=== PATIENT | male | born 1960 | race Caucasian/White ===

== ENCOUNTER → 2021-08-23 | Outpatient (CLI) | payer OTHER ==
--- NOTE | 2021-08-24 08:31 | REPVR ---
PROCEDURE INFORMATION: Exam: MR Lumbar Spine Without Contrast Exam date and time: 08/23/2021 8:16 AM Age: 60 years old Clinical indication: Low back pain; Additional info: Lbp TECHNIQUE: Imaging protocol: Multiplanar magnetic resonance images of the lumbar spine without intravenous contrast. COMPARISON: No relevant prior studies available. FINDINGS: Vertebrae: Moderate dextroscoliosis with right lateral subluxation of L3 on L4 and L4 on L5. Degenerative retrolisthesis of L4 on L5. Grade 1 spondylolisthesis of L5 over S1. Otherwise,The lumbar vertebral bodies are normal in height,signal intensity and alignment.No acute fracture or dislocation is seen. Spinal epidural space: There is no evidence of epidural masses or hemorrhage. Spinal cord: The conus medullaris is normal. The cauda equina nerve roots demonstrate no crowding or displacement. T12-L1: Moderate right foraminal protrusion causing moderate right foraminal stenosis. L1-L2: There is no significant degenerative disc herniation.The spinal canal and neural foramina are patent and without significant stenosis. L2-L3: Moderately reduced in height and T2 signal indicating degeneration. Mild degenerative endplate changes. Small diffuse posterior herniation. Moderate facet arthropathy.There is no evidence of spinal canal narrowing. There is moderate bilateral foraminal stenosis. L3-L4: Markedly reduced in height and T2 signal indicating degeneration. Moderate degenerative endplate changes.There is a mild diffuse posterior bulge causing mild effacement of the thecal sac. Moderate left foraminal protrusion. Mild facet arthropathy.There is no evidence of spinal canal narrowing. There is mild right foraminal stenosis. There is severe left foraminal stenosis. There is compression on the left exiting nerve root. L4-L5: Markedly reduced in height and T2 signal indicating degeneration. Moderate degenerative endplate changes. Small diffuse posterior herniation. Moderate facet arthropathy.There is thickening of the ligamentum flavum.There is no evidence of spinal canal narrowing. There is moderate left foraminal stenosis. There is severe right foraminal stenosis. There is compression on the exiting nerve root. L5-S1: Markedly reduced in height and T2 signal indicating degeneration. Moderate degenerative endplate changes. Small diffuse posterior herniation. Severe facet arthropathy.There is no evidence of spinal canal narrowing. There is severe bilateral foraminal stenosis. There is compression on the bilateral exiting nerve root. Soft tissues: The prevertebral soft tissues appear normal. IMPRESSION: 1. MRI of the lumbar spine reveals multilevel degenerative spondylitic changes and degenerative disc disease as described above. 2. Moderate dextroscoliosis with right lateral subluxation of L3 on L4 and L4 on L5. Degenerative retrolisthesis of L4 on L5. Grade 1 spondylolisthesis of L5 over S1. Otherwise,The lumbar vertebral bodies are normal in height,signal intensity and alignment.No acute fracture or dislocation is seen. Electronically signed by: Daryn Reese On 08/24/2021 08:30:56 AM
== END ==
LOC: M RAD 07:07
PROVIDERS: ATTEND Family Medicine
DX: M54.50 Low back pain, unspecified (principal); M48.05 Spinal stenosis, thoracolumbar region; M51.36 Other intervertebral disc degeneration, lumbar region; M48.061 Spinal stenosis, lumbar region without neurogenic claudication; M43.16 Spondylolisthesis, lumbar region

== ENCOUNTER 2022-02-24 10:54 | Emergency (ER) | payer OTHER ==
[~2022-02-24] VITALS: Ht 188 cm; Wt 100.0 kg
[2022-02-24] MEDS ORDERED: NS 1,000 ML IV ONE (11:20)
[2022-02-24 11:34] LABS: BASO % 0.4 % (0.0-1.0); EOS # 0.1 10^3/uL (0.0-0.5); EOS % 0.7 % (0.0-3.0); HEMATOCRIT 44.9 % (42.0-52.0); HEMOGLOBIN 15.7 g/dl (13.5-17.5); LYMPH # 1.4 10^3/uL (1.5-5.0); MEAN CORPUSCULAR VOLUME 94.3 fl (80.0-96.0); MONO # 0.7 10^3/uL (0.0-0.8); MONO % 7.9 % (2.0-8.0); NEUTROPHILS # 6.7 10^3/uL (1.5-8.5); NEUTROPHILS % 74.8 % (36.0-66.0); PLATELET COUNT, AUTOMATED 237 10^3/uL (150-450); RED BLOOD COUNT 4.76 10^6/uL (4.30-6.10); WHITE BLOOD COUNT 8.9 10^3/uL (4.0-10.0)
[2022-02-24 11:48] LABS: INR 0.92; PROTHROMBIN TIME 12.8 SECONDS (12.7-14.5)
[2022-02-24 11:49] LABS: PARTIAL THROMBOPLASTIN TIME 29.9 SECONDS (25.9-37.0)
[2022-02-24 12:03] LABS: CK-MB VALUE MASS 4.3 NG/ML (<3.6); MB/CK RELATIVE INDEX 1.03 (< OR =4)
[2022-02-24 12:10] LABS: BLOOD UREA NITROGEN 14 MG/DL (7-18); CALCIUM LEVEL 9.8 MG/DL (8.5-10.1); CARBON DIOXIDE LEVEL 25 MEQ/L (21-32); CHLORIDE LEVEL 105 MEQ/L (98-107); CREATININE FOR GFR 1.09 MG/DL (0.70-1.30); GLOMERULAR FILTRATION RATE > 60.0 (>56); GLUCOSE, FASTING 153 MG/DL (70-100); POTASSIUM SERUM 3.9 MEQ/L (3.5-5.1); SODIUM LEVEL 138 MEQ/L (136-145)
[2022-02-24 12:11] LABS: ALBUMIN 4.1 GM/DL (3.2-5.2); ALT/SGPT 45 U/L (12-78); BILIRUBIN,DIRECT 0.2 MG/DL (0.0-0.2); BILIRUBIN,TOTAL 0.7 MG/DL (0.2-1.0); LIPASE 138 U/L (73-393); MAGNESIUM LEVEL 2.1 MG/DL (1.8-2.4); NT-PRO BNP 81 PG/ML (<125); TOTAL PROTEIN 6.8 GM/DL (6.4-8.2)
[2022-02-24] MEDS ORDERED: LISI30TA4 PO (12:21)
[2022-02-24] MEDS ORDERED: HYDR12.55 PO (12:22)
[2022-02-24] MEDS ORDERED: atenoloL 25 MG TAB PO ONE (12:35)
[2022-02-24 12:51] VITALS: BP 151/89
[2022-02-24 12:54] LABS: CK-MB VALUE MASS 4.4 NG/ML (<3.6); MB/CK RELATIVE INDEX 1.09 (< OR =4)
[2022-02-24 14:50] LABS: CK-MB VALUE MASS 4.5 NG/ML (<3.6); MB/CK RELATIVE INDEX 1.17 (< OR =4)
[2022-02-24] MEDS ORDERED: ASPIRIN 81 MG CHEW TABLET PO ONE (15:20)
[2022-02-24] MEDS ORDERED: HEPARIN SOD (PORCINE) 5000UNITS/ML 1ML VIAL/SYRINGE IV ONE (16:05)
[2022-02-24] MEDS ORDERED: HEPARIN DRIP 25,000 UNITS in IV 1 EA IV SCH (16:05)
[2022-02-24 17:20] LABS: RSV AMPLIFICATION NEGATIVE (NEGATIVE)
[2022-02-24 20:30] VITALS: BP 137/83
== END 2022-02-24 20:43 | disposition short-term general hospital (02) ==
LOC: M ED 10:54
DX: I47.1 Supraventricular tachycardia (principal); I21.4 Non-ST elevation (NSTEMI) myocardial infarction; R94.31 Abnormal electrocardiogram [ECG] [EKG]; I10 Essential (primary) hypertension; Z79.899 Other long term (current) drug therapy
CPT/HCPCS: 71045; 80048; 80076; 82550; 82553; 83690; 83735; 83880; 84443; 84484; 85025; 85610; 85730; 87631; 93005; 93041; 94760; 96361; 96365; 96366; 99291; J1644

== ENCOUNTER → 2023-06-02 | Outpatient (CLI) | payer OTHER ==
[~2023-06-02] MED LIST: HYDR12.55 PO; LISI30TA4 PO
== END ==
LOC: M PLAIMG 08:19
PROVIDERS: ATTEND Orthopaedic Surgery
DX: M25.511 Pain in right shoulder (principal)

== ENCOUNTER → 2023-09-08 | Day surgery (SDC) | payer OTHER ==
[~2023-09-08] VITALS: Ht 188 cm; Wt 103.9 kg
[~2023-09-08] MED LIST changes: +AMLO1TAB25 PO; +METO25TA4 PO; +NS 1,000 ML IV ONE; +propofoL 200 MG/20 ML VIAL As Ordered ONE
[2023-09-08 09:09] VITALS: TEMP 97.6
[2023-09-08 09:30] VITALS: BP 149/75; O2SAT 97
== END | disposition home or self-care (01) ==
LOC: M OPP 07:24
PROVIDERS: ATTEND Internal Medicine Gastroenterology
DX: Z12.11 Encounter for screening for malignant neoplasm of colon (principal); Z80.0 Family history of malignant neoplasm of digestive organs; K63.5 Polyp of colon; D12.5 Benign neoplasm of sigmoid colon; K57.30 Diverticulosis of large intestine without perforation or abscess without bleeding; K64.8 Other hemorrhoids; F17.200 Nicotine dependence, unspecified, uncomplicated; Z79.899 Other long term (current) drug therapy

== ENCOUNTER → 2025-02-10 | Outpatient (CLI) | payer OTHER ==
[~2025-02-10] MED LIST changes: -NS 1,000 ML IV ONE; -propofoL 200 MG/20 ML VIAL As Ordered ONE
== END ==
LOC: M EKG 11:04
PROVIDERS: ATTEND Internal Medicine
DX: R00.2 Palpitations (principal); R06.09 Other forms of dyspnea; Z53.9 Procedure and treatment not carried out, unspecified reason

== ENCOUNTER → 2025-03-02 | Outpatient (CLI) | payer OTHER | LOC: M CARPUL 09:25 | PROVIDERS: ATTEND Internal Medicine | DX: R06.09 Other forms of dyspnea (principal); R00.2 Palpitations ==

== ENCOUNTER → 2025-06-05 | Outpatient (CLI) | payer OTHER ==
[~2025-06-05] MED LIST changes: +ALBU8.5H PO; +CHLO125TA PO; +FLUTISP NARES; +SPIR-10 PO; +SPIR12.9 PO; +TELM1TAB37 PO
== END ==
LOC: M PLAIMG 10:20
PROVIDERS: ATTEND Physician Assistant
DX: I71.20 Thoracic aortic aneurysm, without rupture, unspecified (principal)